=== PATIENT | male | born 2000 | race Caucasian/White ===

== ENCOUNTER → 2023-06-18 09:13 | Outpatient (BNVA) | payer OTHER, SELFPAY | PROVIDERS: Family Provider Physician Assistant Medical; PCP Pediatrics Adolescent Medicine; Visit Provider Nurse Practitioner Family | DX: S62.308A Unspecified fracture of other metacarpal bone, initial encounter for closed fracture; W22.8XXA Striking against or struck by other objects, initial encounter | CPT/HCPCS: 73130 ==

== ENCOUNTER → 2023-06-21 08:20 | Outpatient (BNVA) | payer OTHER, SELFPAY | PROVIDERS: Family Provider Physician Assistant Medical; PCP Pediatrics Adolescent Medicine; Visit Provider Specialist | DX: S62.326A Displaced fracture of shaft of fifth metacarpal bone, right hand, initial encounter for closed fracture; W22.8XXA Striking against or struck by other objects, initial encounter | CPT/HCPCS: 73130 ==

== ENCOUNTER 2023-09-10 19:50 | Emergency (ER) | payer OTHER, SELFPAY ==
[2023-09-10 19:58] VITALS: BP 160/83; PULSE 71; RESP 16; TEMP 36.6; O2SAT 100; BMI 29.9
--- NOTE | 2023-09-10 20:02 | XRR_ITS ---
PROCEDURE INFORMATION: Exam: XR Right Ribs with PA Chest Exam date and time: 09/10/2023 8:13 PM Age: 22 years old Clinical indication: Injury or trauma; Other: Hurt RT ribs lifting; Rib area; Sprain or strain; Additional info: Cp TECHNIQUE: Imaging protocol: Radiologic exam of the right ribs with PA chest. Views: 3 views COMPARISON: No relevant prior studies available. FINDINGS: Lungs: Unremarkable. No consolidation. Pleural spaces: Unremarkable. No pleural effusion. No pneumothorax. Heart/Mediastinum: Unremarkable. No cardiomegaly. Bones/joints: Unremarkable. XR/XR ribs RT mn 3V w [id number] IMPRESSION: No acute findings.
[2023-09-10] MEDS: methocarbamol 750 mg Tablet PO (20:28)
[2023-09-10] MEDS: dexamethasone 10 mg/mL INJ 8 MG IM (20:29)
[2023-09-10] MEDS: ketorolac 60 mg/2 mL INJ IM (20:30)
--- NOTE | 2023-09-10 20:35 | W.ED.BACK ---
Documented by User: CHELITA Mercado 09/10/23 21:13 HPI - Back Pain/Injury General: Chief Complaint: Back Pain/Injury Stated Complaint: Upper back pain Time Seen by Provider: 09/10/23 20:03 Source: patient Mode of arrival: ambulatory Limitations: no limitations History of Present Illness: Patient is a 22-year-old male presenting to the emergency department complaining of right upper back pain onset today. Patient states he was lifting something heavy when he felt his rib popped out of place and states that later while he was using a roller to roll out, he felt this again. He notes that since then he has had very limited range of motion due to the pain. He states he has had similar injuries like this in the past from playing football in high school. Pain is primarily to the right posterior thoracic region, and he states it hurts to take deep breaths. No bruising or other signs of injury or trauma noted. MD elicited complaint: back pain Pertinent past history: prior back pain Onset (ago): hour(s) Timing: constant Severity: severe Similar Symptoms Previously: Yes Location: right upper back Radiation: none Exacerbating factors: movement Relieving factors: none Context: while lifting Associated symptoms: Deny abdominal pain, chills, dysuria, fatigue, fever(s), nausea or vomiting Review of Systems General: Reports: 10 or more systems reviewed and unremarkable except in HPI and below Const: Denies: fever(s), chills or fatigue Eyes: Denies: change in vision ENMT: Denies: throat pain, ear or mastoid pain or nasal discharge Card: Denies: chest pain, palpitations, swelling of feet/ankles or lightheadedness Resp: Denies: dyspnea, productive cough or wheezing GI: Denies: abdominal pain, nausea, vomiting, diarrhea or constipation : Denies: flank pain, difficulty urinating, dysuria or urinary frequency Musc: Reports: back pain and limited range of motion; Denies: neck pain or joint pain Skin/Breast: Denies: rash Neuro: Denies: headache(s), numbness in extremities or weakness in extremities PFS ED PFSH: Social History Smoking and tobacco/nicotine status: never used tobacco/nicotine Alcohol intake: never Substance/Drug Use: never Physical Exam Const: COMMON NORMALS: patient oriented x3, no limitations, healthy appearing and alert GENERAL APPEARANCE: cooperative and in distress (From pain) ORIENTATION/CONSCIOUSNESS: Yes awake HENMT: COMMON NORMALS: normocephalic and atraumatic HEAD & SCALP: normocephalic and atraumatic Eye: COMMON NORMALS: EOMs intact bilaterally and conjunctivae normal CONJUNCTIVA: Yes conjunctivae normal Neck/C-Spine: COMMON NORMALS: full ROM CERVICAL SPINE: Yes cervical ROM normal and Yes normal cervical lordosis Chest: COMMONS NORMALS: normal inspection of the chest and normal palpation of entire chest wall Resp: COMMON NORMALS: normal respiratory effort, No use of accessory muscles and clear to auscultation bilaterally AUSCULTATION: clear to auscultation bilaterally Cardio: COMMON NORMALS: regular rate and regular rhythm RATE: regular rate RHYTHM: regular rhythm Back/Pelvis: THORACIC SPINE/UPPER BACK: Yes normal to inspection, Yes ROM limited, Yes pain with ROM, No thoracic spinal tenderness and Yes paraspinal muscle tenderness Thoracic paraspinal muscle tenderness: right LUMBAR SPINE/LOWER BACK: Yes normal to inspection, Yes ROM limited, Yes pain with ROM, No lumbar spinal tenderness and No paraspinal muscle tenderness Extremity: COMMON NORMALS: normal to inspection and full ROM Neuro: COMMON NORMALS: patient oriented x3, moves all extremities, no focal motor deficits and no sensory deficits noted SENSORIUM/ORIENTATION: Yes alert Psych: COMMON NORMALS: mental status grossly normal Course Vital Signs: Vital signs: Vital Signs Temperature 97.8 F 09/10/23 19:58 Pulse Rate 71 09/10/23 19:58 Respiratory Rate 16 09/10/23 19:58 Blood Pressure 160/83 09/10/23 19:58 Pulse Oximetry 100 09/10/23 19:58 Oxygen Delivery Me thod Room Air 09/10/23 19:58 MDM - Back Pain/Injury Medical Decision Making Patient presented for acute onset back pain after lifting some heavy today. Does have history of previous. Rib x-ray did not demonstrate any acute findings. He does note some relief after receiving IM Toradol and prednisone, as well as Robaxin. I will send home prescriptions for these to treat at home, and encouraged to do gentle range of motion exercises and ice for added relief. Also discussed importance of pulmonary hygiene to reduce risk of developing pneumonia, to which she understands. Other reasons to return discussed and he will follow-up with primary care. Labs Radiology Impressions Ribs X-Ray 09/10/23 20:02 IMPRESSION: No acute findings. All radiology interpretation(s) finalized by discharge Discharge Plan Discharge Patient Disposition: Home Clinical Impression: Costochondritis Condition: Stable Prescriptions: New prednisone 20 mg tablet 60 mg PO ONCE 5 Days Qty: 15 0RF ketorolac 10 mg tablet 10 mg PO Q8H PRN (Reason: pain) Qty: 15 0RF methocarbamol 750 mg tablet 750 mg PO Q8H 5 Days Qty: 15 0RF Discharge Orders: Discharge ED (Routine); Ordered 09/10/23 Ordered By: Keshav Solis Referrals: Charu Dos Santos [Family Provider] - Maria Isabel Baca MD [Primary Care Provider] - Discharge Diet: Usual diet Discharge Activity: Increase activity as tolerated Patient Instructions: Costochondritis (ED) Activity Restrictions/Additional Instructions: Take medications as prescribed. Pulmonary hygiene. Gentle range of motion exercises as tolerated. Ice for added relief. Return with any new or worsening symptoms you may have. Follow-up with primary care. Coding Level of Care Code ED Pigs Feet Cleaner for Chg Fwd Documented by User: Jesus Saenz DO 09/13/23 21:39 HPI - Back Pain/Injury General: Chief Complaint: Back Pain/Injury Stated Complaint: Upper back pain Time Seen by Provider: 09/10/23 20:03 [facility] ED PFSH: Social History Smoking and tobacco/nicotine status: never used tobacco/nicotine Alcohol intake: never Substance/Drug Use: never Course Vital Signs: Vital signs: Vital Signs Temperature 97.8 F 09/10/23 19:58 Pulse Rate 71 09/10/23 19:58 Respiratory Rate 16 09/10/23 19:58 Blood Pressure 160/83 09/10/23 19:58 Pulse Oximetry 100 09/10/23 19:58 Oxygen Delivery Me thod Room Air 09/10/23 19:58 MDM - Back Pain/Injury Medical Decision Making Patient presented for acute onset back pain after lifting some heavy today. Does have history of previous. Rib x-ray did not demonstrate any acute findings. He does note some relief after receiving IM Toradol and prednisone, as well as Robaxin. I will send home prescriptions for these to treat at home, and encouraged to do gentle range of motion exercises and ice for added relief. Also discussed importance of pulmonary hygiene to reduce risk of developing pneumonia, to which she understands. Other reasons to return discussed and he will follow-up with primary care. Chart reviewed Labs Radiology Impressions Ribs X-Ray 09/10/23 20:02 IMPRESSION: No acute findings. Discharge Plan Discharge Patient Disposition: Home Clinical Impression: Costochondritis Condition: Stable Prescriptions: New prednisone 20 mg tablet 60 mg PO ONCE 5 Days Qty: 15 0RF ketorolac 10 mg tablet 10 mg PO Q8H PRN (Reason: pain) Qty: 15 0RF methocarbamol 750 mg tablet 750 mg PO Q8H 5 Days Qty: 15 0RF Discharge Orders: Discharge ED (Routine); Ordered 09/10/23 Ordered By: Keshav Solis Referrals: Charu Dos Santos [Family Provider] - Maria Isabel Baca MD [Primary Care Provider] - Discharge Diet: Usual diet Discharge Activity: Increase activity as tolerated Patient Instructions: Costochondritis (ED) Activity Restrictions/Additional Instructions: Take medications as prescribed. Pulmonary hygiene. Gentle range of motion exercises as tolerated. Ice for added relief. Return with any new or worsening symptoms you may have. Follow-up with primary care. Coding Level of Care Code ED Pigs Feet Cleaner for Merly Mascorro
== END 2023-09-10 21:21 | disposition home or self-care (01) ==
PROVIDERS: Emergency Provider Physician Assistant; Family Provider Physician Assistant Medical; PCP Pediatrics Adolescent Medicine
DX: M94.0 Chondrocostal junction syndrome [Tietze] (principal)
CPT/HCPCS: 71101; 96372; 99284; J1100; J1885